=== PATIENT | female | born 1985 | race African-American/Black ===

== ENCOUNTER 2020-01-28 10:33 | Emergency (ER) | payer SELFPAY ==
[~2020-01-28] VITALS: Ht 182.9 cm; Wt 104.0 kg
[2020-01-28] MEDS ORDERED: KETOROLAC 30MG/ML VIAL IM ONE (12:45)
[2020-01-28 12:46] VITALS: BP 140/80
== END 2020-01-28 12:48 | disposition home or self-care (01) ==
LOC: ER 10:33
DX: N61.1 Abscess of the breast and nipple (principal)
CPT/HCPCS: 96372; 99283; J1885